=== PATIENT | male | born 1950 | race Caucasian/White ===

== ENCOUNTER 2016-11-07 12:27 | Emergency (ER) | payer OTHER ==
[2016-11-07 13:03] VITALS: BP 162/80; PULSE 82; RESP 20; TEMP 97.5; O2SAT 94
== END 2016-11-07 15:02 | disposition left against medical advice (07) ==
DX: Z53.21 Procedure and treatment not carried out due to patient leaving prior to being seen by health care provider (principal)

== ENCOUNTER 2017-03-25 00:05 | Emergency (ER) | payer OTHER ==
[2017-03-25 00:13] VITALS: RESP 16; TEMP 98.6
[2017-03-25] MEDS ORDERED: LORazepam 1 MG TAB PO ONE (00:48)
[2017-03-25] MEDS ORDERED: CHLORDIAZEPOXIDE 25MG PREPK#6 BTL TAKEHOME ONE (02:53)
--- NOTE | 2017-03-25 02:53 | EDPHY ---
H & P Stated Complaint: weakness-can't stand from [facility]-seen [facility] 03/24 Time Seen by Provider: 03/25/17 00:27 HPI/ROS: Chief Complaint: Alcohol withdrawal, difficulty ambulating HPI: 67-year-old male with a past medical history chronic alcoholism [facility] with worsening withdrawal symptoms despite taking Librium there. Patient states that he feels very shaky when he gets up to walk needs to hold onto things. He was recently seen at [facility] earlier this morning and had CT scans of his head which were negative in negative laboratory evaluations. He came back the 2nd time there and was discharged to the [facility]. Patient is feeling tremulous similar to his prior withdrawal symptoms. Patient states he has had similar episodes like this whenever goes alcohol withdrawal. No fevers or chills. No nausea or vomiting. No chest pain shortness of breath. ROS: 10 point Review of Systems is negative except as noted in the HPI. PMH: Chronic alcoholism Social History: No smoking, heavy daily alcohol, no recreational drug use Family History: non-contributory Physical Exam: Gen: Awake, Alert, tremulous HEENT: Nose: no rhinorrhea Eyes: PERRLA, EOMI Mouth: Moist mucosa Neck: Supple, no JVD Chest: nontender, lungs clear to auscultation Heart: S1, S2 normal, no murmur, tachycardic Abd: Soft, non-tender, no guarding Back: no CVA tenderness, no midline tenderness Ext: no edema, non-tender Skin: no rash Neuro: CN II-XII intact, Sensation grossly intact, Strength 5/5 in bilateral upper and lower extremities - Personal History Current Tetanus Diphtheria and Acellular Pertussis (TDAP): Yes - Medical/Surgical History Hx Asthma: No Hx Chronic Respiratory Disease: No Hx Diabetes: No Hx Cardiac Disease: No Hx Renal Disease: No Hx Cirrhosis: No Hx Alcoholism: Yes Hx HIV/AIDS: No Hx Splenectomy or Spleen Trauma: No Other PMH: etoh - Social History Smoking Status: Never smoked Constitutional: Initial Vital Signs Temperature (C) 37 C 03/25/17 00:11 Heart Rate 81 03/25/17 00:11 Respiratory Rate 16 03/25/17 00:11 Blood Pressure 190/100 H 03/25/17 00:11 O2 Sat (%) 98 03/25/17 00:11 O2 Delivery Mode Room Air Allergies/Adverse Reactions: No Known Allergies Allergy (Verified 03/25/17 00:11) Home Medications: Medication Instructions Recorded NK [No Known Home Meds] 11/07/16 Medical Decision Making ED Course/Re-evaluation: Patient has evidence of acute alcohol withdrawal. Will give Ativan here. CIWA is 9. 0245 patient is feeling improved. No longer tremulous. He is ambulating unassisted in the emergency department. Will discharge back to the [facility] to continue Librium, return for worsening. He has had no seizure activity here. - Data Points Laboratory Results: 03/25/17 00:13 POC Glucose 98 mg/dL mg/dL (70-100) Medications Given: Discontinued Medications Lorazepam (Ativan) 2 mg PO EDNOW ONE Stop: 03/25/17 00:49 Last Admin: 03/25/17 00:54 Dose: 2 mg Point of Care Test Results: 03/25/17 00:13 POC Glucose 98 Departure - Departure Disposition: Home, Routine, Self-Care Clinical Impression: Alcohol withdrawal Condition: Good Instructions: Alcohol Withdrawal (ED) Additional Instructions: Please seek help to decrease your alcohol consumption. Referrals: NONE *PRIMARY CARE P,. [Primary Care Provider] - As per Instructions
[2017-03-25 03:27] VITALS: BP 160/88; PULSE 65; O2SAT 94
== END 2017-03-25 03:26 | disposition home or self-care (01) ==
LOC: EDUNIT#
DX: F10.239 Alcohol dependence with withdrawal, unspecified (principal)

== ENCOUNTER 2017-12-30 08:57 | Emergency (ER) | payer OTHER ==
--- NOTE | 2017-12-30 09:00 | EDPHY ---
HPI/HX/ROS/PE/MDM Narrative: CHIEF COMPLAINT: Alcohol withdrawal HPI: The patient is a 67 y/o alcoholic arriving via EMS for worsening symptoms due to detox. 2 days ago he had his last drink and was seen at a hospital in [place] before being [facility]. Today he began to vomit and have more tremors than normal, which concerned [facility] staff. His last dose of Librium was at 06:00, 3 hours ago. While en route to the emergency department his BGL was 114 and his BP was 142/76. Denies abdominal pain, urinary or bowel complaints, chest pain, shortness of breath, numbness, paresthesias. REVIEW OF SYSTEMS: Aside from elements discussed in the HPI, a comprehensive 10-point review of systems was reviewed and is negative. PMH: Alcoholism SOCIAL HISTORY: Lives in [place], retired, single PHYSICAL EXAM: General: Patient is tremulous, alert, in no acute distress. ENT: Eyes are normal to inspection. ENT inspection normal. Neck: Normal inspection. Full range of motion. Respiratory: No respiratory distress. Breath sounds normal bilaterally. Cardiovascular: Regular rate and rhythm. Strong peripheral pulses. Normal cap refill. Abdomen: The abdomen is nontender to palpation. There are no peritoneal signs. There are normal bowel sounds. Back: Normal to inspection. No tenderness to palpation. Skin: Normal color. No rash. Warm and dry. Extremities: Normal appearance. Full range of motion. Neuro: Oriented x3. Normal motor function. Normal sensory function. ED Course: 0859: I met EMS upon arrival. 1338: Patient is feeling better after 25mg PO Librium, 4mg IV Ativan, and 1L IV NS. He is able to ambulate normally and would like to return home. Additional 25g PO Librium given prior to discharge. Return precautions provided; patient is comfortable with this plan. - Data Points Medications Given: Discontinued Medications Chlordiazepoxide HCl (Librium) 25 mg PO EDNOW ONE Stop: 12/30/17 09:03 Last Admin: 12/30/17 09:23 Dose: 25 mg Sodium Chloride (Ns) 1,000 mls @ 0 mls/hr IV EDNOW ONE; Wide Open PRN Reason: Protocol Stop: 12/30/17 09:04 Last Admin: 12/30/17 09:22 Dose: 1,000 mls Lorazepam (Ativan Injection) 2 mg IVP EDNOW ONE Stop: 12/30/17 09:03 Last Admin: 12/30/17 09:23 Dose: 2 mg Lorazepam (Ativan Injection) 2 mg IVP EDNOW ONE Stop: 12/30/17 12:26 Last Admin: 12/30/17 12:28 Dose: 2 mg General Time Seen by Provider: 12/30/17 08:58 Initial Vital Signs: Initial Vital Signs Temperature (C) 36.6 C 12/30/17 09:05 Heart Rate 97 12/30/17 09:05 Respiratory Rate 18 12/30/17 09:05 Blood Pressure 182/79 H 12/30/17 09:05 O2 Sat (%) 98 12/30/17 09:05 O2 Delivery Mode Room Air Allergies/Adverse Reactions: No Known Allergies Allergy (Verified 03/25/17 00:11) Home Medications: Medication Instructions Recorded Flomax 12/30/17 Naltrexone 12/30/17 Departure - Departure Disposition: Home, Routine, Self-Care Clinical Impression: Alcohol dependence Qualifiers: Substance use status: uncomplicated Qualified Code(s): F10.20 - Alcohol dependence, uncomplicated Alcohol withdrawal Qualifiers: Complication of substance-induced condition: uncomplicated Qualified Code(s): F10.230 - Alcohol dependence with withdrawal, uncomplicated Condition: Good Instructions: Abuse of Alcohol (ED), Alcohol Withdrawal (ED) Additional Instructions: Please refrain from abusing alcohol. Return to the emergency department immediately for fever, vomiting, confusion, headache, abdominal pain or other worsening of condition. Followup with your primary care physician within 72 hours for reevaluation. Referrals: [facility] [Outside] - As per Instructions [facility],. [Clinic] - As per Instructions Report Scribed for: Julien Armstrong Report Scribed by: Deepthi Faye Date of Report: 12/30/17 Time of Report: 09:03 Physician Review and Approval Statement: Portions of this note were transcribed by an ED scribe. I personally performed the history, physical exam, and medical decision making; and confirm the accuracy of the information in the transcribed note.
[2017-12-30] MEDS ORDERED: LORazepam 2 MG/ML INJ IVP ONE ×2 (09:02→12:25)
[2017-12-30] MEDS ORDERED: chlordiazePOXIDE 25 MG CAP PO ONE ×2 (09:02→13:38)
[2017-12-30] MEDS ORDERED: NS 1,000 ML IV ONE (09:03)
[2017-12-30 14:38] VITALS: BP 162/87
--- NOTE | 2017-12-30 18:03 | ASMTCMCOM ---
CM Note CM Note Notes: Pt presented to the ED [facility] for tremors and difficulty ambulating related to ETOH withdrawal. Pt medically cleared and does not want to return to detox. Pt states he has enough money for a bus pass to get home in [place] but the ED RN and this CM do not feel comfortable with that plan since pt is still shaky, although he is able ambulate independently. Pt was provided a cab voucher back home, where he lives with his son, Noah. Pt gave verbal permission to contact Noah at listed # in demographics; this CM called but the number has been disconnected. Pt doesn't have his cell phone with him and doesn't know his son's new cell phone #. Pt's PCP is Dr Stewart at the [facility] in [place] ([phone]); this CM called and scheduled pt a follow-up appt for 01/05/18 at 10a.m. with ALEXANDRIA Burr. Pt agreeable to this and says he will go to the appt. This CM also asked [facility] staff to put in a request to discuss ETOH abuse treatment and to have a Behavioral Health specialist to visit with the patient because he was talking about how he thinks he has an "unspecified mental health issue that causes him to drink." Pt states he has never been seen by a mental health clinician anywhere and is interested in being assessed. [facility] requested pt's ED visit information be faxed to their office; ED report faxed to ([phone]). Pt states he has participated in AA meetings before and plans on reconnecting with his group. CM available for further assistance if needed. Date Signed: 12/30/2017 06:02 PM Electronically Signed By:Coral Garcia RN
--- NOTE | 2017-12-30 19:12 | ASDISCHSUM ---
Discharge Information Plan Status:Home with No Needs Medically Cleared to Leave: Discharge Date:12/30/2017 02:38 PM CM D/C Disposition:Home, Routine, Self-Care ADT D/C Disposition:Home, Routine, Self-Care Projected Discharge Date:12/30/2017 02:38 PM Transportation at D/C:Cab Voucher Discharge Delay Reason: Follow-Up Date:12/30/2017 02:38 PM Discharge Slot: Final Diagnosis: Placement Information Patient Contact Information Contact Name:KOKI Relationship:Son Address:[address] Work Phone: City:[place] Alternate Phone: State/Zip Code:[place] [address] Email: Financial Information Financial Class:Medicare Primary Plan Desc:MEDICARE OUTPATIENT Primary Plan Number:[id number] Secondary Plan Desc: Secondary Plan Number: Assessment Information [facility] CM Progress Note CM Note CM Note Notes: Pt presented to the ED from [facility] for tremors and difficulty ambulating related to ETOH withdrawal. Pt medically cleared and does not want to return to detox. Pt states he has enough money for a bus pass to get home in [place] but the ED RN and this CM do not feel comfortable with that plan since pt is still shaky, although he is able ambulate independently. Pt was provided a cab voucher back home, where he lives with his son, Noah. Pt gave verbal permission to contact Noah at listed # in demographics; this CM called but the number has been disconnected. Pt doesn't have his cell phone with him and doesn't know his son's new cell phone #. Pt's PCP is Dr Stewart at the [facility] in [place] ([phone]); this CM called and scheduled pt a follow-up appt for 01/05/18 at 10a.m. with ALEXANDRIA Burr. Pt agreeable to this and says he will go to the appt. This CM also asked [facility] staff to put in a request to discuss ETOH abuse treatment and to have a Behavioral Health specialist to visit with the patient because he was talking about how he thinks he has an "unspecified mental health issue that causes him to drink." Pt states he has never been seen by a mental health clinician anywhere and is interested in being assessed. [facility] requested pt's ED visit information be faxed to their office; ED report faxed to ([phone]). Pt states he has participated in AA meetings before and plans on reconnecting with his group. CM available for further assistance if needed. Date Signed: 12/30/2017 06:02 PM Electronically Signed By:Coral Garcia RN Intervention Information Intervention Type:Cab Vouchers Date of Service:12/30/2017 05:05 PM Patient Type:Emergency Room Staff Member:TREVOR Garcia [place] Hours:0.25 Discipline:Marketing Communications Leader Severity: Comment:cab home Intervention Type:Health Clinic Date of Service:12/30/2017 05:05 PM Patient Type:Emergency Room Staff Member:TREVOR Garcia [place] Hours:0.25 Discipline:Marketing Communications Leader Severity: Comment:Follow-up appt at [facility] Intervention Type:Post Acute Communication Date of Service:12/30/2017 05:05 PM Patient Type:Emergency Room Staff Member:TREVOR Garcia [place] Hours:0.25 Discipline:Marketing Communications Leader Severity: Comment:Faxed ED visit report to [facility]; pt gave verbal permission
== END 2017-12-30 14:38 | disposition home or self-care (01) ==
LOC: EDUNIT#
DX: F10.230 Alcohol dependence with withdrawal, uncomplicated (principal); E86.9 Volume depletion, unspecified
CPT/HCPCS: 96361; 96374; 96376; 99284; J2060